=== PATIENT | female | born 1990 | race Caucasian/White ===

== ENCOUNTER 2017-02-12 15:06 | Emergency (ER) | payer SELFPAY ==
[2017-02-12 15:18] VITALS: BP 131/75
--- NOTE | 2017-02-25 17:12 | UC ---
Ear Complaint HPI - HPI Summary HPI Summary: Patient presents to with bilateral ear pain, pulsating feeling in the base of the head and congestion. She admits to feeling very congested with a ALVARES and sinus pressure throughout. She has never had a sinus infection. Mild cough. She notes to bilateral ear pain which feel full with associated pressure. Denies other pain or injuries. Denies history of SAH, migraines, sinus infections or temporal arteritis. Patient takes no medications and is otherwise healthy. - History of Current Complaint Chief Complaint: UCEar Stated Complaint: BILATERAL EAR PAIN Time Seen by Provider: 02/12/17 15:23 Hx Obtained From: Patient Hx Last Menstrual Period: 01/23/17 ?: No Onset/Duration: Sudden Onset Severity Initially: Moderate Severity Currently: Moderate Pain Intensity: 7 Pain Scale Used: 0-10 Numeric Aggravating Factors: Nothing Alleviating Factors: Nothing Associated Signs/Symptoms: Positive: URI Symptoms - Allergies/Home Medications Allergies/Adverse Reactions: Allergies Allergy/AdvReac Type Severity Reaction Status Date / Time No Known Allergies Allergy Verified 02/12/17 15:18 Home Medications: Home Medications Ibuprofen TAB* [Motrin TAB* 800 MG] 800 mg PO ONCE 02/12/17 [History Confirmed 02/12/17] PMH/Surg Hx/FS Hx/Imm Hx Previously Healthy: Yes - Surgical History Surgical History: None - Family History Known Family History: Positive: Unknown - Social History Occupation: Employed Full-time Lives: With Family Alcohol Use: Occasionally Substance Use Type: None Smoking Status (MU): Never Smoked Tobacco Review of Systems Constitutional: Negative Skin: Negative Eyes: Negative ENT: Sore Throat, Ear Ache Respiratory: Negative Cardiovascular: Negative Motor: Negative Neurovascular: Negative Neurological: Headache Psychological: Negative All Other Systems Reviewed And Are Negative: Yes Physical Exam Triage Information Reviewed: Yes Appearance: Well-Appearing, No Pain Distress, Well-Nourished Vital Signs: Initial Vital Signs Temp 98.5 F 02/12/17 15:15 Pulse 69 02/12/17 15:15 Resp 16 02/12/17 15:15 BP 131/75 02/12/17 15:15 Pulse Ox 100 02/12/17 15:15 Vital Signs Reviewed: Yes Eye Exam: Normal Eyes: Positive: Conjunctiva Clear ENT Exam: Normal ENT: Positive: Normal ENT inspection, Hearing grossly normal, Pharynx normal, TMs normal Dental Exam: Normal Neck exam: Normal Neck: Positive: Supple, Nontender, No Lymphadenopathy Respiratory Exam: Normal Respiratory: Positive: Chest non-tender, Lungs clear, Normal breath sounds Cardiovascular Exam: Normal Cardiovascular: Positive: No Murmur Musculoskeletal Exam: Normal Musculoskeletal: Positive: Strength Intact Neurological Exam: Normal Neurological: Positive: Alert Psychological Exam: Normal Psychological: Positive: Normal Response To Family Skin Exam: Normal Ear Complaint Course/Dx - Course Course Of Treatment: PATIENT PRESENTS WITH BILATERAL EAR PAIN AND ALVARES WITH PULSATING FEELING AT THE BASE OF THE HEAD. ALVARES IS NOT WORST OF LIFE AND IS INTERMITTENT. DENIES AURA OR PHOTOSENSITIVITY. PATIENT IS OTHERWISE HEATLHY. HAS FELT CONGESTED RECENTLY. DENIES COUGH. SUDAFED RECOMMENDED WITH CLARITIN AND PREDNISONE FOR PRESSURE AND PAIN. - Differential Dx/Diagnosis Differential Diagnosis/HQI/PQRI: Bronchitis, Otitis Externa, Otitis Media, URI Provider Diagnoses: URI Discharge - Discharge Plan Condition: Stable Disposition: HOME Prescriptions: Loratadine [Claritin 10 MG CAP] 10 mg PO DAILY #15 cap MDD 1 Pseudoephedrine HCl [Sudafed 24 Hour] 240 mg PO DAILY #10 tab MDD 1 predniSONE TAB* [Deltasone TAB*] 50 mg PO DAILY #5 tab MDD 1 Patient Education Materials: Pseudoephedrine (By mouth) Referrals: No Primary Care Phys,NOPCP [Primary Care Provider] - Additional Instructions: DX WITH FLUID/CONGESTION TAKE MEDICATIONS PRESCRIBED IBUPROFEN 600MG THREE TIMES DAILY FOR DISCOMFORT REST YOU MAY USE OVER THE COUNTER NASAL SPRAYS IF YOU FEEL CONGESTED HUMIDIFIER IN THE HOME WILL HELP
== END 2017-02-12 15:43 | disposition home or self-care (01) ==
LOC: UCCORT 15:06
DX: J06.9 Acute upper respiratory infection, unspecified (principal)
CPT/HCPCS: 99202; G0463